=== PATIENT | male | born 1975 | race Caucasian/White ===

== ENCOUNTER 2017-11-21 17:00 | Emergency (ER) | payer MEDICAID ==
[2017-11-21 18:29] VITALS: BP 1437/81
== END 2017-11-21 20:15 | disposition home or self-care (01) ==
LOC: ED 17:00
DX: M70.22 Olecranon bursitis, left elbow (principal); Y93.89 Activity, other specified
CPT/HCPCS: J0696; J2001

== ENCOUNTER 2020-05-30 19:45 | Emergency (ER) | payer MEDICAID ==
[~2020-05-30] VITALS: Ht 162.6 cm; Wt 97.3 kg
[2020-05-30 19:55] VITALS: Ht 162.6 cm; Wt 97.3 kg
[2020-05-30 20:52] LABS: UA SPECIFIC GRAVITY >=1.030 (1.005-1.035); microscopic required? YES; urine erythrocyte 3+ (NEGATIVE)
[2020-05-30 22:43] VITALS: BP 146/65
== END 2020-05-30 22:43 | disposition home or self-care (01) ==
LOC: ED 19:45
PROVIDERS: Student in an Organized Health Care Education/Training Program
DX: N13.2 Hydronephrosis with renal and ureteral calculous obstruction (principal)